=== PATIENT | male | born 1950 | race Caucasian/White ===

== ENCOUNTER 2021-01-17 18:24 | Inpatient (IN) | payer MEDICARE ==
[~2021-01-17] VITALS: Ht 172.7 cm; Wt 78.5 kg
[2021-01-17] MEDS ORDERED: BLOOD SUGAR DIAGNOSTIC 1 EACH STRIP IN ONE (20:00)
[2021-01-17] MEDS ORDERED: MAG HYDROX/AL HYDROX/SIMETH 30 ML UDC PO PRN (20:00)
[2021-01-17] MEDS ORDERED: MAGNESIUM HYDROXIDE 30 ML UDC PO PRN (20:00)
[2021-01-17] MEDS: LORAZEPAM 0.5 MG TABLET PO PRN (20:14)
--- NOTE | 2021-01-17 20:14 | NUR ---
RN NOTES: ANXIETY PT. C/O FEELING ANXIOUS ATIVAN 0.5 MG PO PRN GIVEN PER PT. REQUEST, WILL CONTINUE TO MONITOR.
[2021-01-17 20:27] VITALS: BP 164/77
[2021-01-17 21:00] VITALS: BP 139/78
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
[2021-01-18] MEDS ORDERED: SERT50TA PO (05:39)
--- NOTE | 2021-01-18 06:57 | NUR ---
WOUND CARE CONSULT: PT SEEN FOR RT FOOT DRY ESCHAR, PRESENT ON ADMISSION. RECOMMEND DPM CONSULT. DR GORDON TO BE CONSULTED THIS AM FOR ESCHAR. CURRENT MAHIN SCORE IS 21. MD IN AGREEMENT WITH PLAN OF CARE.
[2021-01-18 07:03] LABS: CREATININE 0.8 mg/dL (0.6-1.3)
[2021-01-18 08:00] VITALS: BP 146/72
[2021-01-18] MEDS: LISINOPRIL (20MG) 20 MG TABLET PO SCH (08:21)
[2021-01-18] MEDS: LORAZEPAM 0.5 MG TABLET PO PRN ×2 (08:27→19:26)
--- NOTE | 2021-01-18 08:28 | NUR ---
RN-NOTES NOTED PATIENT ANXIOUS / SHAKING,ATIVAN 0.5MG P.O GIVEN PRN ORDER. WILL CONT. MONITORING FOR SAFETY AND BEHAVIOR.
--- NOTE | 2021-01-18 09:25 | NUR ---
RN-NOTES PATIENT LYING IN BED AWAKE,ALERT ,CALM NO ACUTE DISTRESS NOTED.
[2021-01-18 11:33] LABS: BILIRUBIN,URINE SMALL (NEGATIVE); LEUKOCYTE ESTERASE ,URINE NEGATIVE (NEGATIVE); NITRITE, URINE NEGATIVE (NEGATIVE); PH,URINE 8.5 (5.0-8.0); PROTEIN,URINE NEGATIVE (NEGATIVE); UGLUCOSE NEGATIVE (NEGATIVE); UROBILINOGEN,URINE >=8.0 EU/dL (0.2)
[2021-01-18 11:36] LABS: COLOR,URINE AMBER (YELLOW)
[2021-01-18 12:12] LABS: BACTERIA,URINE Rare /HPF (None Seen); SQUAMOUS EPITHELIAL CELL,UR Rare /HPF (None Seen)
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
[2021-01-18] MEDS: GABAPENTIN 100 MG CAPSULE PO SCH ×2 (14:45→16:44)
[2021-01-18 16:00] VITALS: BP 141/77
--- NOTE | 2021-01-18 16:21 | NUR ---
Initial Discharge Plan: Pt currently resides in his apartment by himself located at [address] [place] [address], [address] [address]; ([phone]). Per pt, he would like to return to his home. SW will work with the pt and the MD regarding appropriate discharge planning. SW will form a safe and proper discharge.
[2021-01-18] MEDS: SERTRALINE HCL 50 MG TABLET PO SCH (16:44)
[2021-01-18] MEDS: UREA 10% -AHA 4% CREAM 57 GM TUBE TP SCH (16:47)
--- NOTE | 2021-01-18 19:27 | NUR ---
RN NOTES: ANXIETY PT. C/O FEELING ANXIOUS ATIVAN 0.5 MG PO PRN GIVEN PER PT. REQUEST, WILL CONTINUE TO MONITOR.
[2021-01-18 20:20] VITALS: BP 163/83
[2021-01-18 20:45] VITALS: BP 139/80
[2021-01-18] MEDS: OLANZAPINE 5 MG TABLET PO SCH (21:46)
[2021-01-18] MEDS ORDERED: OLANZAPINE 10 MG TABLET PO SCH (22:00)
[2021-01-18] MEDS: TEMAZEPAM 7.5 MG CAPSULE PO PRN (23:19)
--- NOTE | 2021-01-18 23:19 | NUR ---
RN NOTES: INSOMNIA PT. C/O UNABLE TO SLEEP , RESTORIL 7.5 MG PO PRN GIVEN PER PT. REQUEST, WILL CONTINUE TO MONITOR.
[2021-01-19] MEDS: LORAZEPAM 0.5 MG TABLET PO PRN (05:00)
--- NOTE | 2021-01-19 05:02 | NUR ---
RN NOTES: ANXIETY PT. C/O FEELING ANXIOUS PACING IN HALLWAY ATIVAN 0.5 MG PO PRN GIVEN PER PT. REQUEST, WILL CONTINUE TO MONITOR.
[2021-01-19 06:41] LABS: BASOPHILS % (AUTO) 0.4 % (0.0-2.0); EOSINOPHILS % (AUTO) 1.5 % (0.0-6.0); HEMATOCRIT 36 % (39-51); LYMPHOCYTES # (AUTO) 1.1 /CMM (0.8-4.8); LYMPHOCYTES % (AUTO) 23.2 % (20.0-44.0); MEAN CORPUSCULAR HGB CONC 33 g/dl (31.0-36.0); MEAN CORPUSCULAR VOLUME 96 fL (80-96); MONOCYTES # (AUTO) 0.5 /CMM (0.1-1.30); MONOCYTES % (AUTO) 11.3 % (2.0-12.0); NEUTROPHILS # (AUTO) 3.1 /CMM (1.8-8.9); NEUTROPHILS % (AUTO) 63.6 % (43.0-81.0); PLATELET COUNT (AUTO) 135 /CMM (150-450); RED BLOOD CELL COUNT(AUTO) 3.76 MIL/uL (4.5-6.0); WHITE BLOOD COUNT (AUTO) 4.8 K/uL (4.3-11.0)
[2021-01-19 06:50] LABS: CALCIUM, SERUM 8.7 mg/dL (8.5-10.1); CREATININE 0.8 mg/dL (0.6-1.3); MAGNESIUM 1.9 mg/dL (1.8-2.4); PHOSPHORUS 4.2 mg/dL (2.5-4.9); POTASSIUM 3.3 mmol/L (3.5-5.1)
[2021-01-19 08:00] VITALS: BP 150/86
[2021-01-19] MEDS: LISINOPRIL (20MG) 20 MG TABLET PO SCH (08:14)
[2021-01-19] MEDS: GABAPENTIN 100 MG CAPSULE PO SCH ×3 (08:14→16:26)
[2021-01-19] MEDS: UREA 10% -AHA 4% CREAM 57 GM TUBE TP SCH ×2 (09:16→16:28)
[2021-01-19] MEDS ORDERED: POTASSIUM CHLORIDE 20 MEQ TAB.PRT.SR PO SCH (10:00)
[2021-01-19 16:00] VITALS: BP 154/71
[2021-01-19] MEDS: SERTRALINE HCL 50 MG TABLET PO SCH (16:26)
[2021-01-19 19:54] VITALS: BP 153/94
[2021-01-19] MEDS: OLANZAPINE 5 MG TABLET PO SCH (21:22)
[2021-01-19] MEDS: TEMAZEPAM 7.5 MG CAPSULE PO PRN (22:29)
--- NOTE | 2021-01-20 06:40 | NUR ---
NURSES NOTES: PATIENT WALKING ALONG THE HALLWAYS. NO COMPLAINS OF PAIN, FOCUSED ON DISCHARGE. EDUCATED PATIENT ABOUT HIS HOLD. PATIENT APPEARS ANXIOUS AT THIS TIME. PROVIDED PATIENT SOME TIME AND SPACE TO CALM HIS MIND. WILL ENDORSE PATIENT'S CARE TO DAY SHIFT NURSE.
[2021-01-20 07:23] LABS: CALCIUM, SERUM 9.2 mg/dL (8.5-10.1); CREATININE 0.8 mg/dL (0.6-1.3); POTASSIUM 3.6 mmol/L (3.5-5.1)
[2021-01-20 08:00] VITALS: BP 161/95
[2021-01-20] MEDS: GABAPENTIN 100 MG CAPSULE PO SCH ×3 (08:39→16:00)
[2021-01-20] MEDS: LISINOPRIL (20MG) 20 MG TABLET PO SCH (08:40)
[2021-01-20] MEDS: UREA 10% -AHA 4% CREAM 57 GM TUBE TP SCH ×2 (11:47→16:27)
[2021-01-20] MEDS: LORAZEPAM 0.5 MG TABLET PO PRN (12:10)
--- NOTE | 2021-01-20 12:10 | NUR ---
RN NOTES PATIENT COMPLAINED OF FEELING OF ANXIETY, PATIENT REQUEST FOR ATIVAN 0.5 MG 1 TAB P.O. AND WAS GIVEN. WILL CONTINUE TO MONITOR.
[2021-01-20 16:00] VITALS: BP 180/99
[2021-01-20] MEDS: SERTRALINE HCL 50 MG TABLET PO SCH ×2 (16:00→17:00)
[2021-01-20] MEDS ORDERED: LORAZEPAM INJ 2 MG/ML VIAL IM STA ×2 (16:29→17:43)
[2021-01-20] MEDS ORDERED: diphenhydrAMINE HCL 50 MG/ML VIAL IM STA (16:29)
[2021-01-20] MEDS ORDERED: HALOPERIDOL LACTATE INJ 5 MG/ML VIAL IM STA (16:29)
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
[2021-01-20 18:43] VITALS: BP 142/72
[2021-01-20 20:00] VITALS: BP 136/81
[2021-01-20] MEDS: OLANZAPINE 5 MG TABLET PO SCH (22:00)
--- NOTE | 2021-01-20 22:34 | NUR ---
GPS RN NOTES: PATIENT IS SLEEPING INTERMITTENTLY, PATIENT HAD IM Addendum: 01/20/21 at 2249 by DIANA RIVERS RN GPS RN NOTES: PATIENT 2200 ZYPREXA 2.5MG WAS NOT ADMINISTERED BECAUSE PATIENT WAS SLEEPING INTERMITTENTLY. PATIENT HAD 2 IM SHOTS WITH AM SHIFT DUE TO AGGRESSIVE BEHAVIOR AND AGITATION. ATIVAN 2MG, BENADRYL 25MG AND HALDOL 5MG WAS GIVEN AT 1639. AT 1751 PATIENT HAD A SECOND IM DUE TO AGITATION AND AGGRESSION, THORAZINE 50MG AND ATIVAN 2MG. PATIENT IS STILL HAVING THE EFFECT OF BOTH IM AND VERY SLEEPY. WILL CONTINUE TO MONITOR.
--- NOTE | 2021-01-21 06:57 | NUR ---
GPS RN CLOSING NOTES: PATIENT IS SLEEPING COMFORTABLY IN BED. PATIENT SLEPT 6HR THIS SHIFT. REFUSED WEEKLY SKIN ASSESSMENT. NO S/S OF DISTRESS. RESPIRATION EVEN AND UNLABORED WITH EQUAL RISE AND FALL OF THE CHEST ON ROOM AIR. ALL PATIENT CARE NEEDS HAVE BEEN MET ANTICIPATED. WILL CONTINUE TO MONITOR FOR SAFETY, MOOD AND BEHAVIOR AND ENDORSE TO AM SHIFT.
[2021-01-21 08:00] VITALS: BP 138/65
[2021-01-21] MEDS: UREA 10% -AHA 4% CREAM 57 GM TUBE TP SCH ×2 (08:00→16:48)
[2021-01-21] MEDS: GABAPENTIN 100 MG CAPSULE PO SCH (08:00)
[2021-01-21] MEDS: LISINOPRIL (20MG) 20 MG TABLET PO SCH (08:00)
[2021-01-21] MEDS: LORAZEPAM 1 MG TABLET PO PRN ×2 (11:46→18:03)
--- NOTE | 2021-01-21 11:46 | NUR ---
RN NOTE: ANXIETY AND AGITATION PT EXHIBITING INCREASED ANXIETY AND AGITATION. PT VISIBLY SHAKING AND DIFFICULT TO REDIRECT. DR. VALVERDE PRESENT. PRN ATIVAN INCREASED TO 1MG AND ADMINISTERED PO. WILL CONT TO ASSESS FOR NEED FOR PRN MEDICATION AND EFFECTIVENESS.
[2021-01-21] MEDS ORDERED: OLANZAPINE 2.5 MG TABLET PO PRN (12:00)
[2021-01-21] MEDS: GABAPENTIN 300 MG CAPSULE PO SCH ×2 (12:03→16:47)
--- NOTE | 2021-01-21 14:40 | NUR ---
SNF Referral: DEVEN faxed a referral to [facility] with attn to INNA and Mariano to the fax number: [phone].
[2021-01-21 16:00] VITALS: BP 134/75
[2021-01-21] MEDS: SERTRALINE HCL 50 MG TABLET PO SCH (16:47)
--- NOTE | 2021-01-21 18:03 | NUR ---
RN NOTE: ANXIETY PT C/O INCREASING ANXIETY. VISIBLY SHAKING. MEDICATED WITH ATIVAN 1MG PO PRN.
[2021-01-21] MEDS: ACETAMINOPHEN 325 MG TABLET PO PRN (18:30)
--- NOTE | 2021-01-21 18:31 | NUR ---
RN NOTE: PAIN PT C/O /10 NECK PAIN. MEDICATED WITH TYLENOL 650 MG PO PRN
[2021-01-21 20:00] VITALS: BP 137/66
[2021-01-21] MEDS: OLANZAPINE 5 MG TABLET PO SCH (21:22)
[2021-01-22 08:00] VITALS: BP 128/71
[2021-01-22] MEDS: LISINOPRIL (20MG) 20 MG TABLET PO SCH (08:20)
[2021-01-22] MEDS: GABAPENTIN 300 MG CAPSULE PO SCH ×3 (08:20→16:20)
[2021-01-22] MEDS: UREA 10% -AHA 4% CREAM 57 GM TUBE TP SCH ×2 (08:22→16:20)
[2021-01-22] MEDS: ACETAMINOPHEN 325 MG TABLET PO PRN (08:54)
[2021-01-22] MEDS: LORAZEPAM 1 MG TABLET PO PRN ×2 (08:54→21:38)
--- NOTE | 2021-01-22 08:54 | NUR ---
RN NOTE: ANXIETY AND PAIN PT C/O INCREASING ANXIETY. VISIBLE TREMORS. PACING HALLWAY. MEDICATED WITH ATIVAN 1MG PO PRN. PT C/O 10/24 NECK PAIN. MEDICATED WITH TYLENOL 650 MG PO PRN. WILL CONT TO MONITOR PT FOR SAFETY AND BEHAVIOR WELL EFFECTIVENESS OF PRN MEDICATION.
[2021-01-22 16:00] VITALS: BP 154/71
[2021-01-22] MEDS: SERTRALINE HCL 50 MG TABLET PO SCH (16:20)
--- NOTE | 2021-01-22 16:22 | NUR ---
SNF Contact: INNA ([phone]) from [facility] contacted the SW and stated that the pt was accepted to their facility.
[2021-01-22 19:51] VITALS: BP 161/75
[2021-01-22] MEDS: OLANZAPINE 5 MG TABLET PO SCH (21:02)
--- NOTE | 2021-01-22 21:39 | NUR ---
GPS-RN NOTES: PATIENT C/O FEELING ANXIOUS. PRN ATIVAN 1MG PO GIVEN PER PATIENT'S REQUEST. WILL CONTINUE TO MONITOR FOR PATIENT'S SAFETY.
[2021-01-22] MEDS: TEMAZEPAM 7.5 MG CAPSULE PO PRN (23:43)
--- NOTE | 2021-01-22 23:43 | NUR ---
GPS-RN NOTES: INSOMNIA PATIENT C/O INABILITY TO SLEEP. PRN RESTORIL 7.5MG PO ORDERED. WILL CONTINUE TO MONITOR FOR PATIENT'S SAFETY.
[2021-01-23 08:00] VITALS: BP 137/62
[2021-01-23] MEDS: UREA 10% -AHA 4% CREAM 57 GM TUBE TP SCH ×2 (08:25→17:02)
[2021-01-23] MEDS: LISINOPRIL (20MG) 20 MG TABLET PO SCH (08:25)
[2021-01-23] MEDS: GABAPENTIN 300 MG CAPSULE PO SCH ×4 (08:25→21:18)
--- NOTE | 2021-01-23 10:10 | NUR ---
Probable Cause Hearing: Pts [id number] hold was upheld for grave disability.
--- NOTE | 2021-01-23 10:29 | NUR ---
Family Contact: SW called the pts daughter, Erin ([phone]), and informed her that the pt is refusing the placement that was secured for him. She stated that she does not have the best relationship with the pt and that she will talk to his ex to talk to the pt about accepting the placement.
[2021-01-23 16:00] VITALS: BP 155/90
[2021-01-23] MEDS: SERTRALINE HCL 50 MG TABLET PO SCH (17:01)
[2021-01-23 20:00] VITALS: BP 156/80
[2021-01-23] MEDS: OLANZAPINE 5 MG TABLET PO SCH (21:18)
[2021-01-23] MEDS: TEMAZEPAM 7.5 MG CAPSULE PO PRN (23:53)
--- NOTE | 2021-01-23 23:54 | NUR ---
GPS-RN NOTES: INSOMNIA PATIENT C/O INABILITY TO SLEEP. PRN RESTORIL 7.5MG PO GIVEN PER PT'S REQUEST. WILL CONTINUE TO MONITOR FOR PATIENT'S SAFETY.
[2021-01-24 08:00] VITALS: BP 147/77
[2021-01-24] MEDS: LISINOPRIL (20MG) 20 MG TABLET PO SCH (08:33)
[2021-01-24] MEDS: GABAPENTIN 300 MG CAPSULE PO SCH ×4 (08:33→21:36)
[2021-01-24] MEDS: UREA 10% -AHA 4% CREAM 57 GM TUBE TP SCH ×2 (08:51→16:28)
[2021-01-24] MEDS: LORAZEPAM 1 MG TABLET PO PRN (08:53)
--- NOTE | 2021-01-24 08:53 | NUR ---
RN-NOTES PATIENT C/O ANXIETY,ATIVAN 1MG P.O GIVEN PRN ORDER. WILL CONT. MONITORING FOR SAFETY AND BEHAVIOR.
--- NOTE | 2021-01-24 09:50 | NUR ---
RN-NOTES PATIENT LYING IN BED AWAKE,ALERT,CALM NO ACUTE DISTRESS NOTED.
[2021-01-24] MEDS: ACETAMINOPHEN 325 MG TABLET PO PRN (15:37)
--- NOTE | 2021-01-24 15:42 | NUR ---
RN NOTES PATIENT COMPLAINED OF NECK PAIN 5/10, ADMINISTERED TYLENOL 650MG.
[2021-01-24 16:00] VITALS: BP 145/71
[2021-01-24] MEDS: SERTRALINE HCL 50 MG TABLET PO SCH (16:10)
--- NOTE | 2021-01-24 16:40 | NUR ---
RN-NOTES PATIENT STATED "TYLENOL HELPS WITH HEAD PAIN".NO ACUTE DISTRESS NOTED.
[2021-01-24] MEDS ORDERED: LORAZEPAM 0.5 MG TABLET PO PRN (18:00)
[2021-01-24 19:47] VITALS: BP 136/82
[2021-01-24 20:00] VITALS: BP 136/82
[2021-01-24] MEDS: OLANZAPINE 5 MG TABLET PO SCH (21:36)
[2021-01-24] MEDS: TEMAZEPAM 7.5 MG CAPSULE PO PRN (23:05)
--- NOTE | 2021-01-24 23:10 | NUR ---
RN NOTES PT. ASKED FOR SLEEPING PILL- RESTORIL 7.5MG PO GIVEN ORDERED, V/S STABLE
[2021-01-25 08:00] VITALS: BP 145/76
[2021-01-25] MEDS: GABAPENTIN 300 MG CAPSULE PO SCH ×4 (08:29→21:13)
[2021-01-25] MEDS: LISINOPRIL (20MG) 20 MG TABLET PO SCH (08:29)
[2021-01-25] MEDS: UREA 10% -AHA 4% CREAM 57 GM TUBE TP SCH ×2 (09:12→17:44)
[2021-01-25] MEDS ORDERED: GABAPENTIN 300 MG CAPSULE PO PRN (11:30)
[2021-01-25 16:00] VITALS: BP 155/86
[2021-01-25] MEDS: SERTRALINE HCL 50 MG TABLET PO SCH (16:16)
[2021-01-25 20:30] VITALS: BP 156/84
[2021-01-25] MEDS: OLANZAPINE 5 MG TABLET PO SCH (21:13)
[2021-01-25] MEDS: TEMAZEPAM 7.5 MG CAPSULE PO PRN (21:55)
[2021-01-26] MEDS: ACETAMINOPHEN 325 MG TABLET PO PRN (07:36)
--- NOTE | 2021-01-26 07:37 | NUR ---
RN-NOTES PATIENT C/O HEAD ACHE AND REQUESTING TYLENOL, TYLENOL 650MG P.O GIVEN PRN ORDER. WILL CONT. MONITORING FOR SAFETY AND BEHAVIOR.
[2021-01-26 08:00] VITALS: BP 156/82
[2021-01-26] MEDS: GABAPENTIN 300 MG CAPSULE PO SCH ×4 (08:24→21:27)
[2021-01-26] MEDS: LISINOPRIL (20MG) 20 MG TABLET PO SCH (08:24)
--- NOTE | 2021-01-26 08:25 | NUR ---
RN-NOTES PATIENT C/O ANXIETY,ATIVAN 0.5MG P.O GIVEN PRN ORDER. WILL CONT. MONITORING FOR SAFETY AND BEHAVIOR.
--- NOTE | 2021-01-26 08:35 | NUR ---
RN-NOTES PATIENT STATED "TYLENOL HELPS WITH HEAD PAIN".NO ACUTE DISTRESS NOTED.
[2021-01-26] MEDS: UREA 10% -AHA 4% CREAM 57 GM TUBE TP SCH ×2 (08:49→17:15)
--- NOTE | 2021-01-26 09:25 | NUR ---
RN-NOTES PATIENT LYING IN BED AWAKE,ALERT,CALM NO ACUTE DISTRESS NOTED.
[2021-01-26 16:00] VITALS: BP 154/82
[2021-01-26] MEDS: SERTRALINE HCL 50 MG TABLET PO SCH (17:16)
[2021-01-26 20:22] VITALS: BP 166/75
[2021-01-26] MEDS: OLANZAPINE 5 MG TABLET PO SCH (21:27)
[2021-01-26] MEDS: TEMAZEPAM 7.5 MG CAPSULE PO PRN (21:35)
[2021-01-27 08:00] VITALS: BP 155/70
--- NOTE | 2021-01-27 08:00 | NUR ---
RN OPENING NOTE Patient in bed, awake. Tolerating room air, denies shortness of breath.Follow simple commands. denies any si/hi/ah/vh at this time. med compliant. calm. Bed in low position. Remains under psyche care.will monitor q15 for safety.
[2021-01-27] MEDS: LISINOPRIL (20MG) 20 MG TABLET PO SCH (08:59)
[2021-01-27] MEDS: GABAPENTIN 300 MG CAPSULE PO SCH ×4 (08:59→22:16)
[2021-01-27] MEDS: UREA 10% -AHA 4% CREAM 57 GM TUBE TP SCH ×2 (09:27→16:26)
[2021-01-27 16:00] VITALS: BP 164/82
[2021-01-27] MEDS: SERTRALINE HCL 50 MG TABLET PO SCH (16:25)
[2021-01-27 20:31] VITALS: BP 157/84
[2021-01-27] MEDS: OLANZAPINE 5 MG TABLET PO SCH (22:17)
[2021-01-27] MEDS: TEMAZEPAM 7.5 MG CAPSULE PO PRN (22:27)
--- NOTE | 2021-01-27 22:27 | NUR ---
GPS RN NOTES PATIENT ASKED FOR SLEEPING MED. GIVEN RESTORIL PRN.
[2021-01-28 01:04] VITALS: BP 157/84
--- NOTE | 2021-01-28 06:42 | NUR ---
GPS RN CLOSING NOTE PATIENT IN BED WITH EYES CLOSED, EASY TO AROUSE. NO S/S OF DISTRESS. NO C/O PAIN FAYE. ALL NEEDS ATTENDED. ALL SCHED MEDS ADMINISTERED. SAFETY KEPT THE WHOLE SHIFT. DID NOT REPORT ANY SI. NO SIGNIFICANT CHANGE SINCE LAST SHIFT. WILL ENDORSE CARE TO MORNING RN.
[2021-01-28 08:00] VITALS: BP 139/74
--- NOTE | 2021-01-28 09:00 | NUR ---
RN NOTE- PT ALERT ORIENTED INTERACTIVE FOCUS ON DC CALM DIRECTABLE MED COMPLIANT DENIES ALL
[2021-01-28] MEDS: GABAPENTIN 300 MG CAPSULE PO SCH ×3 (09:15→17:12)
[2021-01-28] MEDS: LISINOPRIL (20MG) 20 MG TABLET PO SCH (09:15)
[2021-01-28] MEDS: UREA 10% -AHA 4% CREAM 57 GM TUBE TP SCH ×2 (09:19→17:12)
[2021-01-28] MEDS ORDERED: LORAZEPAM 0.5 MG TABLET PO PRN (12:30)
--- NOTE | 2021-01-28 13:59 | NUR ---
Family Contact: SW called the pts daughter, Erin ([phone]), and informed her that the pt is going to be discharged the following day. She stated that she went to the pts place and cleaned up the apartment over the weekend to make it habitable. DEVEN stated that she will work on the pts follow up and transportation as he cannot wait to leave.
--- NOTE | 2021-01-28 15:29 | NUR ---
Outpatient Psychiatrist: DEVEN contacted Dr. Haddad and left a voicemail to make an appointment.
[2021-01-28 16:00] VITALS: BP 157/67
[2021-01-28] MEDS ORDERED: SERTRALINE HCL 50 MG TABLET PO SCH (17:00)
--- NOTE | 2021-01-28 19:48 | NUR ---
Opening Notes: Patient in his room, awake. Tolerating room air, no c/o and s/s of pain and discomfort.Follow simple commands. denies any si/hi/ah/vh at this time. med compliant as reported . calm. Bed in low position. Remains under psyche care.will monitor q15 for safety.
[2021-01-28 20:00] VITALS: BP 156/44
[2021-01-28] MEDS: OLANZAPINE 5 MG TABLET PO SCH (21:25)
[2021-01-28] MEDS ORDERED: GABAPENTIN 300 MG CAPSULE PO SCH (22:00)
[2021-01-28] MEDS: TEMAZEPAM 7.5 MG CAPSULE PO PRN (22:02)
--- NOTE | 2021-01-29 05:50 | NUR ---
GPS RN CLOSING NOTE PATIENT IN BED SLEEPING , NO S/S OF DISTRESS. NO C/O PAIN FAYE. ALL NEEDS ATTENDED. ALL SCHED MEDS ADMINISTERED. SAFETY KEPT THE WHOLE SHIFT. DID NOT REPORT ANY SI. NO SIGNIFICANT CHANGE SINCE LAST SHIFT. WILL ENDORSE CARE TO MORNING RN.
[2021-01-29 08:00] VITALS: BP 158/69
[2021-01-29 08:24] VITALS: BP 158/69
[2021-01-29] MEDS: LISINOPRIL (20MG) 20 MG TABLET PO SCH (08:24)
[2021-01-29] MEDS: GABAPENTIN 300 MG CAPSULE PO SCH ×2 (08:24→13:07)
[2021-01-29] MEDS: UREA 10% -AHA 4% CREAM 57 GM TUBE TP SCH (08:24)
--- NOTE | 2021-01-29 09:00 | NUR ---
RN NOTE- PT FOR DC . PT ALERT ORIENTED INTERACTIVE FOCUS ON DC CALM DIRECTABLE MED COMPLIANT DENIES ALL
[2021-01-29] MEDS ORDERED: SERTRALINE HCL 50 MG TABLET PO SCH (11:00)
--- NOTE | 2021-01-29 11:33 | NUR ---
Discharge Note: Pt will be discharged back to his home located at [address], [address], [place] [address]. Pt will order an Uber for himself at 11am. Pts daughter, Erlin ([phone]), was informed of the discharge. Upon discharge, the pt appears to be alert and oriented x4 (time, place, self and situation). Pt appears to be in a euthymic mood and presents with a distressed affect. Pt denies suicidal and homicidal ideation as well as auditory and visual hallucinations. Pt appears to be ambulatory with a steady gait and presents as well groomed. Pt will be under the care of his psychiatrist, Dr. Roberto Haddad, located at [address], [place] [address]; . Pt has an appointment scheduled for 01/30/21 at 12pm. Pt will follow up with the pts business continuity manager, Dr. Levi [place], [place] [address] [place], [address]; . The multidisciplinary exit care form was done, printed, signed, and given to the patient.
--- NOTE | 2021-01-29 13:25 | NUR ---
RN NOTE- PT DC HOME AT THIS TIME. PT IS ALERT ORIENTED TO PERSON PLACE TIME PURPOSE. DENIES SI HI AH VH. VS STABLE VALUABLES RETURNED AND SIGNED FOR. SKIN INTACT. PHOTOS TAKEN OF FEET FOR CHART. ID [id number] REMOVED. AFTERCARE REVIEWED W PT. VERBALIZED UNDERSTANDING. INSTRUCTED TO F/U WITH PERSONAL PSYCHIATRIST TOMORROW FOR CONTINUATION OF ZOLOFT. ZOLOFT DOSE GIVEN FOR TODAY. ESCORTED OFF UNIT BY THIS RN
== END 2021-01-29 13:25 | disposition home or self-care (01) | DRG 885 ==
LOC: GPS 18:24
PROVIDERS: ADMIT Psychiatry & Neurology Psychosomatic Medicine; ATTEND Registered Nurse
PROC: 0HBMXZZ Excision of Right Foot Skin, External Approach (ICD-10-PCS; principal; 2021-01-18)
DX: F33.2 Major depressive disorder, recurrent severe without psychotic features (principal); F10.139 Alcohol abuse with withdrawal, unspecified; F23 Brief psychotic disorder; R45.851 Suicidal ideations; F41.9 Anxiety disorder, unspecified; F17.210 Nicotine dependence, cigarettes, uncomplicated; L85.3 Xerosis cutis; M20.41 Other hammer toe(s) (acquired), right foot; L84 Corns and callosities; M20.42 Other hammer toe(s) (acquired), left foot; Y90.9 Presence of alcohol in blood, level not specified; S61.519A Laceration without foreign body of unspecified wrist, initial encounter
CPT/HCPCS: 36415; 80048-TC; 80061-TC; 81001; 82565-TC; 82962-TC; 83735-TC; 84100-TC; 84443-TC; 85025-TC; 87081-TC; 87086-TC; 97116-TC; 97530-TC; J1200; J1630; J2060; J3230